=== PATIENT | female | born 1935 | race African-American/Black ===

== ENCOUNTER 2018-04-16 06:48 | Emergency (ER) | payer MEDICARE, MEDICAID ==
[~2018-04-16] VITALS: Ht 170.2 cm; Wt 67.4 kg
[~2018-04-16 06:48] MED LIST: BIMA2.5D EACHEYE; BRIM5DRO EACHEYE; DILT180C95 PO; HYDR-4069 PO; ISOS10TA8 PO; LOVA20TA2 PO; NITR0.4T48 SL; NORCO10T PO; OMEP20TA23 PO; PIL2OS EACHEYE; [UNRECOGNIZED DRUG - CODE] PO
[2018-04-16] MEDS ORDERED: acetaminophen 325mg tablet PO ONE (08:10)
[2018-04-16] MEDS ORDERED: HYDROcodone/acetaminophen 5mg/325mg tablet PO ONE (08:15)
[2018-04-16 08:18] LABS: ALBUMIN 3.8 G/DL (3.4-5.0); ANION GAP 9 (8-16); BLOOD UREA NITROGEN 15 MG/DL (7-18); BUN/CREATININE RATIO 13.9 (6.6-38.0); CALCIUM 9.1 MG/DL (8.5-10.1); CHLORIDE 108 MMOL/L (99-107); CREATININE 1.08 MG/DL (0.40-0.90); GLUCOSE 96 MG/DL (70-104); POTASSIUM 3.5 MMOL/L (3.5-5.1); SODIUM 141 MMOL/L (135-145); TOTAL CARBON DIOXIDE 24.2 MMOL/L (24-32); eGFR 59 ML/MIN
[2018-04-16 08:24] VITALS: BP 182/73
== END 2018-04-16 09:06 | disposition home or self-care (01) ==
LOC: ER 06:49
DX: I10 Essential (primary) hypertension (principal); I25.10 Atherosclerotic heart disease of native coronary artery without angina pectoris; I25.2 Old myocardial infarction; M19.90 Unspecified osteoarthritis, unspecified site; G89.29 Other chronic pain; Z90.49 Acquired absence of other specified parts of digestive tract; Z90.710 Acquired absence of both cervix and uterus; Z98.890 Other specified postprocedural states; Z88.6 Allergy status to analgesic agent; Z88.0 Allergy status to penicillin; Z88.1 Allergy status to other antibiotic agents; Z88.8 Allergy status to other drugs, medicaments and biological substances; Z79.82 Long term (current) use of aspirin; Z79.899 Other long term (current) drug therapy
CPT/HCPCS: 36415; 80048; 99284

== ENCOUNTER 2019-01-21 19:38 | Observation (INO) | payer MEDICARE, MEDICAID ==
[~2019-01-21] VITALS: Ht 170.2 cm; Wt 59.1 kg
[~2019-01-21 19:38] MED LIST changes: +DILT-36 PO; -DILT180C95 PO
[2019-01-21 19:56] LABS: BASOPHILS # (AUTO) 0.1 X10'3 (0-0.2); BASOPHILS % (AUTO) 0.9 % (0-1); EOSINOPHILS # (AUTO) 0.1 X10'3 (0-0.9); EOSINOPHILS % (AUTO) 1.7 % (0-6); HEMATOCRIT 35.6 % (35.0-45.0); HEMOGLOBIN 11.9 g/dl (12.0-16.0); LYMPHOCYTES # (AUTO) 0.9 X10'3 (1.1-4.8); LYMPHOCYTES % (AUTO) 15.2 % (21-51); MEAN CORPUSCULAR HGB CONC 33.6 g/dL (33.0-36.5); MEAN CORPUSCULAR VOLUME 86.5 FL (78-98); MEAN PLATELET VOLUME 7.8 FL (7.4-10.4); MONOCYTES # (AUTO) 0.7 X10'3 (0-0.9); NEUTROPHILS # (AUTO) 4.1 X10'3 (1.8-7.7); NEUTROPHILS % (AUTO) 70.2 % (42-75); PLATELET COUNT 188 X10'3 (140-440); RED BLOOD COUNT 4.12 X10'6 (4.20-5.60); RED CELL DISTRIBUTION WIDTH 15.9 % (11.5-14.5); WHITE BLOOD COUNT 5.9 X10'3 (4.5-11.0)
[2019-01-21 20:09] LABS: ALANINE AMINOTRANSFERASE 22 U/L (12-78); ALBUMIN 3.5 G/DL (3.4-5.0); ALBUMIN/GLOBULIN RATIO 1.2 (1.1-1.5); ALKALINE PHOSPHATASE 108 IU/L (46-116); ANION GAP 12 (8-16); ASPARTATE AMINO TRANSFERASE 15 U/L (10-37); BILIRUBIN,TOTAL 0.3 MG/DL (0.1-1.0); BLOOD UREA NITROGEN 21 MG/DL (7-18); BUN/CREATININE RATIO 14.8 (6.6-38.0); CALCIUM 8.1 MG/DL (8.5-10.1); CHLORIDE 113 MMOL/L (99-107); CREATININE 1.42 MG/DL (0.40-0.90); GLUCOSE 128 MG/DL (70-104); POTASSIUM 3.5 MMOL/L (3.5-5.1); SODIUM 142 MMOL/L (135-145); TOTAL CARBON DIOXIDE 17.2 MMOL/L (24-32); TOTAL PROTEIN 6.4 G/DL (6.4-8.2); eGFR 43 ML/MIN
[2019-01-21 20:14] LABS: TROPONIN I < 0.04 NG/ML (0.0-0.05)
[2019-01-21 20:23] LABS: PARTIAL THROMBOPLASTIN TIME 27 SECONDS (22-32)
[2019-01-21] MEDS ORDERED: aspirin 81mg tab.chew PO STA (20:47)
--- NOTE | 2019-01-21 20:48 | NUR ---
PER DR SAINZ, PT NO LONGER STROKE ALERT.
[2019-01-21 20:58] LABS: CLARITY,URINE CLEAR (Clear); COLOR,URINE YELLOW (Yellow); GLUCOSE, URINE NEGATIVE (Neg); KETONES,URINE NEGATIVE (Neg); LEUKOCYTE ESTERASE ,URINE TRACE (Neg); NITRITES, URINE NEGATIVE (Neg); OCCULT BLOOD,URINE NEGATIVE (Neg); PROTEIN,URINE NEGATIVE (Neg); UROBILINOGEN,URINE 0.2 E.U/dL (0.2-1.0)
[2019-01-21 21:05] LABS: RBC,URINE NONE SEEN /HPF (0-2); UA COLLECTION TYPE STRAIGHT CATH; WBC,URINE 0-4 /HPF (0-4)
[2019-01-21 21:06] LABS: BACTERIA,URINE FEW /HPF (Neg); SQUAMOUS EPITHELIAL CELL,UR FEW /LPF (FEW)
[2019-01-21] MEDS ORDERED: PRED5DRO3 EACHEYE (21:17)
[2019-01-21] MEDS ORDERED: ATRO10DR (21:17)
[2019-01-21] MEDS ORDERED: BRIN8DRO EACHEYE (21:17)
[2019-01-21] MEDS ORDERED: OFLO5DRO EACHEYE (21:17)
[2019-01-21] MEDS ORDERED: [UNRECOGNIZED DRUG - CODE] PO (21:17)
[2019-01-21] MEDS ORDERED: ACET500C46 PO (21:49)
[2019-01-21] MEDS ORDERED: magnesium hydroxide 30ml (MOM) UD suspension PO PRN (22:00)
[2019-01-21] MEDS ORDERED: ondansetron/PF 4mg/2ml inj IV PRN (22:00)
[2019-01-21] MEDS ORDERED: acetaminophen 325mg tablet PO PRN (22:00)
[2019-01-21] MEDS ORDERED: mag hydrox/Alum hydrox/simeth 30ml oral suspension PO PRN (22:00)
[2019-01-21] MEDS ORDERED: nitroGLYCERIN 0.4mg SUBLingual tab SL PRN (22:05)
[2019-01-21 23:00] VITALS: BP 166/66
[2019-01-21] MEDS ORDERED: acetaZOLAMIDE 500mg capsule.SA PO ONE (23:15)
[2019-01-21] MEDS: pilocarpine 2% ophthalmic drops 15ml EACHEYE SCH ×3 (23:22→23:46)
[2019-01-21] MEDS: ofloxacin 0.33% 5ml ophthalmic drops EACHEYE SCH ×2 (23:22→23:46)
--- NOTE | 2019-01-21 23:23 | NUR ---
Received report from ER. Patient brought to room and transferred from [facility] to bed. No skin issues. Daughter at bedside. Went over ordered medications with daughter. She stated that patient has not had her Diamox - and needed her night dose. She also stated not to give eye drops throughout the night, as they are only while awake.
[2019-01-21] MEDS: docusate sod 100mg capsule PO SCH (23:43)
[2019-01-21] MEDS: acetaminophen 325mg tablet PO PRN (23:44)
[2019-01-22 01:00] LABS: CHOL/HDL RATIO 2.2 (0.00-4.99); CHOLESTEROL 126 MG/DL (0-200); HDL CHOLESTEROL 58 MG/DL (35-60); LDL CHOLESTEROL 62 MG/DL (50-100); TRIGLYCERIDES 29 MG/DL (20-135)
[2019-01-22 04:00] VITALS: BP 164/66
[2019-01-22 05:19] LABS: ALBUMIN 3.4 G/DL (3.4-5.0); ANION GAP 11 (8-16); BLOOD UREA NITROGEN 16 MG/DL (7-18); BUN/CREATININE RATIO 13.3 (6.6-38.0); CALCIUM 8.5 MG/DL (8.5-10.1); CHLORIDE 117 MMOL/L (99-107); GLUCOSE 90 MG/DL (70-104); POTASSIUM 3.1 MMOL/L (3.5-5.1); SODIUM 146 MMOL/L (135-145); TOTAL CARBON DIOXIDE 17.9 MMOL/L (24-32); TROPONIN I < 0.04 NG/ML (0.0-0.05); eGFR 52 ML/MIN
[2019-01-22 06:00] VITALS: BP 153/59
--- NOTE | 2019-01-22 06:20 | NUR ---
Problems reprioritized. Patient report given, questions answered & plan of care reviewed with Milvia RN.
--- NOTE | 2019-01-22 06:32 | NUR ---
Patient in room [facility] 4010. I have received report from Lesia SALES and had the opportunity to ask questions and assume patient care.
[2019-01-22] MEDS: famotidine 20mg tablet PO SCH (07:15)
[2019-01-22] MEDS: acetaZOLAMIDE 500mg capsule.SA PO SCH ×2 (07:15→20:59)
[2019-01-22] MEDS: atorvastatin 10mg tablet PO SCH (07:15)
[2019-01-22] MEDS: pilocarpine 2% ophthalmic drops 15ml EACHEYE SCH ×4 (07:18→19:37)
[2019-01-22] MEDS: prednisoLONE acetate 1% ophth susp 5ml EACHEYE SCH (07:19)
[2019-01-22] MEDS: hyDRALAzine 10mg tablet PO SCH ×4 (07:34→21:41)
[2019-01-22] MEDS ORDERED: AMIO200T61 PO (07:51)
--- NOTE | 2019-01-22 07:52 | NUR ---
Pt daughter refuses to give pharmacy home meds. Daughter is dispensing eye drops to Pt. Educated on hospital policy will notify
[2019-01-22] MEDS: ofloxacin 0.33% 5ml ophthalmic drops EACHEYE SCH ×3 (07:55→19:37)
[2019-01-22] MEDS: SIMBRINZA EACHEYE SCH ×3 (07:55→19:37)
[2019-01-22] MEDS: EYE EACHEYE SCH ×3 (07:55→19:37)
[2019-01-22] MEDS ORDERED: diltiazem CD 180mg cap (once-daily) PO SCH (08:00)
[2019-01-22] MEDS ORDERED: aspirin 325mg tablet PO SCH (08:00)
[2019-01-22] MEDS ORDERED: hydrALAZINE 25 MG tablet PO SCH (08:00)
[2019-01-22] MEDS ORDERED: enoxaparin 40mg/0.4ml syringe SUBCUT SCH (08:00)
[2019-01-22] MEDS ORDERED: enoxaparin 30mg/0.3ml syringe SUBCUT SCH (08:00)
[2019-01-22 08:18] LABS: BASOPHILS # (AUTO) 0.1 X10'3 (0-0.2); BASOPHILS % (AUTO) 0.8 % (0-1); EOSINOPHILS # (AUTO) 0.2 X10'3 (0-0.9); EOSINOPHILS % (AUTO) 2.3 % (0-6); HEMATOCRIT 40.6 % (35.0-45.0); HEMOGLOBIN 13.5 g/dl (12.0-16.0); LYMPHOCYTES # (AUTO) 0.8 X10'3 (1.1-4.8); LYMPHOCYTES % (AUTO) 12.3 % (21-51); MEAN CORPUSCULAR HEMOGLOBIN 28.9 PG (27.0-31.0); MEAN CORPUSCULAR HGB CONC 33.4 g/dL (33.0-36.5); MEAN CORPUSCULAR VOLUME 86.6 FL (78-98); MEAN PLATELET VOLUME 8.1 FL (7.4-10.4); MONOCYTES # (AUTO) 0.6 X10'3 (0-0.9); MONOCYTES % (AUTO) 9.5 % (2-12); NEUTROPHILS # (AUTO) 5.1 X10'3 (1.8-7.7); NEUTROPHILS % (AUTO) 75.1 % (42-75); PLATELET COUNT 205 X10'3 (140-440); RED BLOOD COUNT 4.69 X10'6 (4.20-5.60); RED CELL DISTRIBUTION WIDTH 15.8 % (11.5-14.5); WHITE BLOOD COUNT 6.7 X10'3 (4.5-11.0)
--- NOTE | 2019-01-22 08:30 | NUR ---
Pt went for MRI in
--- NOTE | 2019-01-22 09:22 | NUR ---
Pt daughter gave Pt her home med of amiodarone . Daughter knew about hospital policy but still gave meds. will notify .
[2019-01-22] MEDS ORDERED: potassium CL 10mEq/100ml bag 100 ML IV PRN ×2 (09:30→10:20)
[2019-01-22] MEDS ORDERED: potassium Cl 20 mEq SR tablet PO PRN ×3 (09:30→10:20)
[2019-01-22] MEDS ORDERED: DILT-94 PO (09:56)
[2019-01-22] MEDS: potassium Cl 20 mEq SR tablet PO PRN ×2 (09:59→16:59)
[2019-01-22 10:00] VITALS: BP 142/50
[2019-01-22] MEDS ORDERED: magnesium 4gm in 100ml NS 100 ML IV PRN (10:20)
[2019-01-22] MEDS ORDERED: magnesium Cl slow-release 64mg tablet PO PRN (10:20)
[2019-01-22] MEDS: amiodarone 200mg tablet PO SCH (11:25)
[2019-01-22] MEDS: apixaban 5mg tablet PO SCH ×2 (11:50→20:59)
[2019-01-22] MEDS: CefTRIAXone/D5W-Rocephin 1gm 50 ML IV SCH (13:09)
[2019-01-22] MEDS: normal saline 1000ml 1,000 ML IV SCH ×2 (13:13→23:41)
[2019-01-22] MEDS: acetaminophen 325mg tablet PO PRN (13:19)
[2019-01-22 14:00] VITALS: BP 141/51
--- NOTE | 2019-01-22 15:34 | NUR ---
Malnutrition consult: Pt and daughter seen at bedside. Pt reports UBW in the 130's and denies any recent wt loss or decreased appetite. Pt reports good PO intake [employer] and is with good PO intake during admit documented with 100% PO intake x 2 meals so far meeting nutrient needs. Pt on vegetarian diet, reports she is a lacto-ovo vegetarian. Pt with no edema and mild weakness to left leg. Visible clavicle however pt reports that's normal for her. Pt currently does not meet criteria for malnutrition. Pt and daughter request information on gaining weight, both provided with written and verbal high calorie high protein nutrition therapy education with ONS coupons and RD contact information. Pt requests strawberry Ensure Enlive TID, d/w RN and dietary. Pt agreeable to trying vanilla Ensure pudding and Magic Cup as well. Recommend Ensure pudding QD with breakfast and Magic Cup BIDLD for optimal kcal, d/w dietary. Pt denies food allergies, difficulty chewing/swallowing, or constipation/diarrhea. Will continue to follow. Addendum: 01/22/19 at [address] Amended: Links added.
--- NOTE | 2019-01-22 16:55 | NUR ---
gave 40meq instead 20meq of K at 0959. did unscheduled administration to correct.
--- NOTE | 2019-01-22 17:51 | NUR ---
I AGREE WITH MY PRECEPTEE CRYSTAL SALES'S CHARTING.
[2019-01-22 18:00] VITALS: BP 133/48
[2019-01-22] MEDS: lactose-reduced food (Ensure Enlive) - 237ml bottle PO SCH (18:00)
--- NOTE | 2019-01-22 18:46 | NUR ---
Problems reprioritized. Patient report given, questions answered & plan of care reviewed with Lesia SALES.
[2019-01-22] MEDS ORDERED: diltiazem CD 120mg capsule (once-daily) PO SCH (19:00)
--- NOTE | 2019-01-22 19:07 | NUR ---
patient's daughter notified me that she administered dose of cardizem 240mg. non administered on eMAR. she will also administer eye gtts, per order.
[2019-01-22] MEDS: docusate sod 100mg capsule PO SCH (20:59)
[2019-01-22] MEDS ORDERED: latanoprost 0.005% 2.5ml ophthalmic drops EACHEYE SCH (21:00)
[2019-01-22] MEDS ORDERED: ISOSORBIDE MONONITRATE 10 MG PO SCH (21:00)
[2019-01-22 22:00] VITALS: BP 123/44
[2019-01-23 02:00] VITALS: BP 126/51
[2019-01-23] MEDS: ofloxacin 0.33% 5ml ophthalmic drops EACHEYE SCH ×2 (02:00→08:00)
[2019-01-23] MEDS: pilocarpine 2% ophthalmic drops 15ml EACHEYE SCH ×3 (02:37→08:08)
--- NOTE | 2019-01-23 06:28 | NUR ---
Problems reprioritized. Patient report given, questions answered & plan of care reviewed with MÓNICA Vigil.
[2019-01-23 07:03] VITALS: BP 143/52
[2019-01-23 07:04] LABS: BASOPHILS # (AUTO) 0.1 X10'3 (0-0.2); BASOPHILS % (AUTO) 0.9 % (0-1); EOSINOPHILS # (AUTO) 0.2 X10'3 (0-0.9); EOSINOPHILS % (AUTO) 2.3 % (0-6); HEMATOCRIT 36.3 % (35.0-45.0); HEMOGLOBIN 12.2 g/dl (12.0-16.0); LYMPHOCYTES # (AUTO) 0.9 X10'3 (1.1-4.8); LYMPHOCYTES % (AUTO) 13.5 % (21-51); MEAN CORPUSCULAR HEMOGLOBIN 29.2 PG (27.0-31.0); MEAN CORPUSCULAR HGB CONC 33.6 g/dL (33.0-36.5); MEAN CORPUSCULAR VOLUME 86.8 FL (78-98); MEAN PLATELET VOLUME 8.5 FL (7.4-10.4); MONOCYTES # (AUTO) 0.8 X10'3 (0-0.9); MONOCYTES % (AUTO) 11.6 % (2-12); NEUTROPHILS # (AUTO) 4.9 X10'3 (1.8-7.7); NEUTROPHILS % (AUTO) 71.7 % (42-75); PLATELET COUNT 196 X10'3 (140-440); RED BLOOD COUNT 4.18 X10'6 (4.20-5.60); RED CELL DISTRIBUTION WIDTH 15.7 % (11.5-14.5); WHITE BLOOD COUNT 6.9 X10'3 (4.5-11.0)
[2019-01-23 07:20] LABS: ALBUMIN 3.2 G/DL (3.4-5.0); ANION GAP 14 (8-16); BLOOD UREA NITROGEN 15 MG/DL (7-18); BUN/CREATININE RATIO 12.8 (6.6-38.0); CALCIUM 8.1 MG/DL (8.5-10.1); CHLORIDE 116 MMOL/L (99-107); CREATININE 1.17 MG/DL (0.40-0.90); GLUCOSE 93 MG/DL (70-104); POTASSIUM 3.5 MMOL/L (3.5-5.1); SODIUM 146 MMOL/L (135-145); TOTAL CARBON DIOXIDE 15.6 MMOL/L (24-32); eGFR 53 ML/MIN
[2019-01-23] MEDS: EYE EACHEYE SCH (08:00)
[2019-01-23] MEDS: SIMBRINZA EACHEYE SCH (08:00)
[2019-01-23] MEDS: famotidine 20mg tablet PO SCH (08:06)
[2019-01-23] MEDS: amiodarone 200mg tablet PO SCH (08:07)
[2019-01-23] MEDS: hyDRALAzine 10mg tablet PO SCH (08:07)
[2019-01-23] MEDS: atorvastatin 10mg tablet PO SCH (08:07)
[2019-01-23] MEDS: CefTRIAXone/D5W-Rocephin 1gm 50 ML IV SCH (08:07)
[2019-01-23] MEDS: apixaban 5mg tablet PO SCH (08:07)
[2019-01-23] MEDS: acetaZOLAMIDE 500mg capsule.SA PO SCH (08:07)
[2019-01-23] MEDS: prednisoLONE acetate 1% ophth susp 5ml EACHEYE SCH (08:08)
[2019-01-23] MEDS: normal saline 1000ml 1,000 ML IV SCH (08:15)
[2019-01-23] MEDS: lactose-reduced food (Ensure Enlive) - 237ml bottle PO SCH (08:16)
[2019-01-23] MEDS ORDERED: aspirin 81mg tablet.DR PO SCH (08:30)
[2019-01-23] MEDS ORDERED: LACT-237 PO (10:22)
[2019-01-23] MEDS ORDERED: APIX5TAB3 PO (10:22)
[2019-01-23] MEDS ORDERED: SODI650T29 PO (10:22)
[2019-01-23] MEDS ORDERED: COL100C PO (10:22)
[2019-01-23] MEDS ORDERED: CEFD300C3 PO (10:22)
[2019-01-23] MEDS ORDERED: ASPI-1071 PO (10:22)
== END 2019-01-23 11:45 | disposition home health service (06) ==
LOC: ER 19:39 → ORTHO 4S 23:51
PROVIDERS: ADMIT Hospitalist; ATTEND Hospitalist
DX: I63.9 Cerebral infarction, unspecified (principal); R53.1 Weakness; R47.81 Slurred speech; I10 Essential (primary) hypertension; R07.89 Other chest pain; I25.10 Atherosclerotic heart disease of native coronary artery without angina pectoris; I25.2 Old myocardial infarction; I34.1 Nonrheumatic mitral (valve) prolapse; I48.2 Chronic atrial fibrillation; E87.6 Hypokalemia; E86.0 Dehydration; M48.061 Spinal stenosis, lumbar region without neurogenic claudication; Z79.01 Long term (current) use of anticoagulants; Z79.82 Long term (current) use of aspirin; Z87.11 Personal history of peptic ulcer disease; Z85.42 Personal history of malignant neoplasm of other parts of uterus; Z90.710 Acquired absence of both cervix and uterus
CPT/HCPCS: 36415; 70450; 70544; 70551; 71045; 72148; 80048; 80053; 80061; 81001; 84439; 84443; 84484; 85025; 85610; 85730; 87081; 87088; 93005; 93306; 93880; 96361; 96365; 96366; 96372; 97110; 97116; 97162; 97530; 99284; G0378; J0696; J1650; J7030